=== PATIENT | female | born 2000 | race Caucasian/White ===

== ENCOUNTER 2022-11-24 15:52 | Emergency (ER) | payer OTHER, SELFPAY ==
[2022-11-24 16:05] VITALS: BP 132/76; PULSE 108; RESP 20; TEMP 36.8; O2SAT 96; BMI 29.2
--- NOTE | 2022-11-24 16:12 | ED.FEMALEGU ---
HPI - Female Genitourinary General Chief complaint: Vaginal Bleeding Stated complaint: vaginal bleeding edc 2 Time Seen by Provider: 11/24/22 17:31 Source: patient Mode of arrival: ambulatory Limitations: no limitations History of Present Illness HPI Narrative: 22 yo female currently 9 weeks here with vaginal spotting 6 days ago (started as yellow/brown with mucous, yesterday blood is dark brown with odor). No abdominal or pelvic pain. Spoke to certification engineer antichecking iron worker today who recommended patient go to UC or ER for an evaluation. Went to UC and she was referred here d/t need for US. G 1 P0 YASSINE 06/24/23. 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 Has upcoming appt for one. Has a known cervical polyp, tested for STDS at last OB visit whcih were all negative Not sexually active Related Data Allergies Allergy/AdvReac Type Severity Reaction Status Date / Time No Known Allergies Allergy Verified 11/24/22 16:15 Review of Systems Review of Systems: Yes all other systems are reviewed and are negative Constitutional: Constitutional: Reports no additional constitutional complaints, Denies body ache(s), Denies chills, Denies fever(s), Denies headache(s) and Denies weakness Eyes: Eyes: Reports no additional eye complaints and Denies change in vision ENT: Reports system reviewed and no additional complaints, except as documented, Denies dizziness, Denies headache(s), Denies nasal congestion, Denies nasal discharge and Denies neck pain Cardiovascular: Cardiovascular: Reports no additional cardiovascular complaints, Denies chest pain, Denies leg edema and Denies dyspnea Respiratory: Respiratory: Reports no additional respiratory complaints, Denies cough and Denies dyspnea Gastrointestinal: Gastrointestinal: Reports no additional gastrointestinal complaints, Denies abdominal pain, Denies diarrhea, Denies nausea and Denies vomiting Genitourinary: Genitourinary: Reports no additional female genitourinary complaints, Denies urinary incontinence and Reports vaginal discharge Musculoskeletal: Musculoskeletal: Reports no additional musculoskeletal complaints, Denies back pain, Denies arthralgias, Denies joint swelling, Denies neck pain, Denies numbness and Denies tingling Integumentary/Breasts: Skin/Breast: Reports system reviewed and no additional complaints, except as docu and Denies rash Neurologic: Reports system reviewed and no additional complaints, except as documented, Denies Abnormal speech present, Denies dizziness, Denies headache(s), Denies numbness, Denies tingling and Denies weakness PMFSH Past Medical History Attestation statement: The following information was validated with the patient. Source: old records reviewed and nursing notes reviewed Social History Social History Advance Directives: No Advance Directives Information Provided: No Physical Exam Vital Signs: Vital Signs: Last Vital Signs Temp 98.2 F 11/24/22 16:05 Pulse 108 H 11/24/22 16:05 Resp 20 11/24/22 16:05 BP 132/76 11/24/22 16:05 Pulse Ox 96 11/24/22 16:05 BMI result Body Mass Index 29.2 Const: General: cooperative, healthy appearing, comfortable and no acute distress Orientation/consciousness: patient oriented x3 Limitations: no limitations HEENT: Head: Yes normal to inspection Ears: hearing grossly normal bilaterally General nose exam: Normal external nose present Face and sinus: Yes normal facial exam Mouth: Normal oral and palatal mucosa present Throat: Yes posterior oropharynx normal Eyes: General: appearance normal, both eyes and all related structures Pupils: Equal, round and reactive pupils present Neck: Neck: Yes normal visual inspection Chest: Chest palpation & inspection: normal inspection of the chest Resp: Effort & Inspection: normal respiratory effort Auscultation: clear to auscultation bilaterally Cardio: Rate: regular rate Rhythm: regular rhythm Peripheral pulses: Peripheral pulses 2+ throughout GI: Inspection: Yes normal to inspection Palpation (GI): Soft to palpation and nontender Auscultation: normal bowel sounds : Other: Pelvic done with Janis NULL student around the labia minora/majora there is scant yelow thick discharge When the speculum was introduced the cervix is friable with a polyp seen, there is some bleeding noted around the cervix and not from the OS External Female Exam: normal external appearance Bimanual exam- vagina & uterus: normal bimanual exam Bimanual Exam- Adnexa, other: normal adnexae Back/Spine/Pelvis: Thoracic/Lumbar Spine: thoracic and lumbar spine normal to inspection Skin: General skin exam: no rashes or lesions noted Neuro: General: patient oriented x3, no focal motor deficits and normal sensation to monofilament Cranial nerves: Yes Equal, round and reactive pupils present Cognition (Neuro): normal cognition Speech: No Abnormal speech present Gait exam (Neuro): Normal gait present Motor exam (neuro): 5/5 motor strength present throughout Extrem: General: Yes normal to inspection Course Course Course Narrative: RME: 22yo F w/no sig PMHx w/+home test in October c/o brown/red vaginal discharge x6 days. LMP 09/17. Also reports concerns for yeast infection. +nausea. denies abdominal pain. Does have OBGYN/receiving care, 1st ultrasound scheduled for next week Labs, UA, Pelvic US ordered Full HPI, ROS and PE to be performed by primary ED provider. Reevaluation(s) Reevaluation #1: Pelvic US confirms IUP, quant >100k so less likely ectopic or SAB. May be threatened MS. Recommend close f/u with OB. Sent testing for CT NG, BV panel. Will wait for results d/t . Patient has low concern for STI. Reviewed worrisome signs/symptom with patient and when to seek additional care. Comfortable with discharge home. Medical Decision Making Medical Decision Making [facility] Narrative: 22 yo female currently 9 weeks here with complaints of malodorous vaginal discharge which was initially yellow but now is dark brown in appearance with no reports of pelvic pain/abdominal pain. Has been seen by OB at [facility]. Tested negative for STI in last month, waiting for upcoming US to confirm IUP. On exam no focal abdominal pain. Will need labs, UA, US and pelvic exam Differential Diagnosis Differential Diagnoses: The differential diagnosis associated with the presentation includes ectopic , SAB, threatened MS STI Low concern for PID with no reports of pelvic/abdominal pain vaginitis Lab Data [facility] Lab Attestation statement: I reviewed the patient's lab results. 11/24/22 16:57 11/24/22 16:57 Labs: Lab Results 11/24/22 11/24/22 11/24/22 Range/Units 16:57 16:57 16:57 WBC 8.0 (4.8-10.8) X10*3/uL RBC 4.34 (4.20-5.50) X10*6/uL Hgb 13.0 (12.0-16.0) g/dl Hct 37.9 (37.0-47.0) % MCV 87.3 (80.0-98.0) fL MCH 30.0 (27.0-33.0) pg MCHC 34.3 (31.0-35.0) g/dl RDW 12.3 (11.0-16.0) % Plt Count 282 (160-400) X10*3/uL MPV 9.5 (9.4-12.3) fL Immature Gran % (Auto) 0.4 (0.0-0.4) % Neut % (Auto) 60.0 (45-73) % Lymph % (Auto) 30.2 (20-40) % [place] % (Auto) 8.7 (2-11) % Eos % (Auto) 0.4 (0-4) % Baso % (Auto) 0.3 (0-2) % Lymph # (Auto) 2.4 (1.2-4.9) X10*3/uL [place] # (Auto) 0.7 (0.1-1.2) X10*3/uL Eos # (Auto) 0.0 (0.0-0.4) X10*3/uL Baso # (Auto) 0.0 (0.0-0.2) X10*3/uL Abs Immat Gran (auto) 0.03 (0.00-0.03) X10*3/uL Absolute Neuts (auto) 4.8 (2.0-8.3) x10*3/uL Absolute Nucleated RBC 0.000 (0.0-0.012) X10*3/uL Nucleated RBC % (auto) 0.0 (0.0-0.2) /100WBC Sodium 137 (135-145) mmol/L Potassium 3.9 (3.3-5.1) mmol/L Chloride 107 (96-108) mmol/L Carbon Dioxide 21 L (22-29) mmol/L Anion Gap 13 (12-20) BUN 9 (9-16) mg/dL Creatinine 0.64 (0.5-1.4) mg/dL Estim Creat Clear Calc 138.6 Estimated GFR > 60 Random Glucose 87 (60-115) mg/dL Calcium 9.5 (8.4-10.2) mg/dL Magnesium 1.9 (1.6-2.6) mg/dL Total Bilirubin 0.4 (0.0-1.0) mg/dL Direct Bilirubin 0.1 (0.0-0.5) mg/dL AST 20 (5-31) U/L ALT 18 (0-31) U/L Alkaline Phosphatase 68 (39-117) U/L Total Protein 7.0 (6.5-8.0) g/dL Albumin 3.9 (3.5-5.0) g/dL Lipase 20 (8-78) U/L Beta HCG, Quant 268385 mIU/mL Blood Type 11/24/22 Range/Units 16:57 WBC (4.8-10.8) X10*3/uL RBC (4.20-5.50) X10*6/uL Hgb (12.0-16.0) g/dl Hct (37.0-47.0) % MCV (80.0-98.0) fL MCH (27.0-33.0) pg MCHC (31.0-35.0) g/dl RDW (11.0-16.0) % Plt Count (160-400) X10*3/uL MPV (9.4-12.3) fL Immature Gran % (Auto) (0.0-0.4) % Neut % (Auto) (45-73) % Lymph % (Auto) (20-40) % [place] % (Auto) (2-11) % Eos % (Auto) (0-4) % Baso % (Auto) (0-2) % Lymph # (Auto) (1.2-4.9) X10*3/uL [place] # (Auto) (0.1-1.2) X10*3/uL Eos # (Auto) (0.0-0.4) X10*3/uL Baso # (Auto) (0.0-0.2) X10*3/uL Abs Immat Gran (auto) (0.00-0.03) X10*3/uL Absolute Neuts (auto) (2.0-8.3) x10*3/uL Absolute Nucleated RBC (0.0-0.012) X10*3/uL Nucleated RBC % (auto) (0.0-0.2) /100WBC Sodium (135-145) mmol/L Potassium (3.3-5.1) mmol/L Chloride (96-108) mmol/L Carbon Dioxide (22-29) mmol/L Anion Gap (12-20) BUN (9-16) mg/dL Creatinine (0.5-1.4) mg/dL Estim Creat Clear Calc Estimated GFR Random Glucose (60-115) mg/dL Calcium (8.4-10.2) mg/dL Magnesium (1.6-2.6) mg/dL Total Bilirubin (0.0-1.0) mg/dL Direct Bilirubin (0.0-0.5) mg/dL AST (5-31) U/L ALT (0-31) U/L Alkaline Phosphatase (39-117) U/L Total Protein (6.5-8.0) g/dL Albumin (3.5-5.0) g/dL Lipase (8-78) U/L Beta HCG, Quant mIU/mL Blood Type O Positive Independent Interpretation I performed an independent interpretation of an: Ultrasound Interpretation: I independently reviewed the US and agree with rad report Radiology Impression Discussion of test interpretation with radiology: I have reviewed the radiologist's reading. Radiologist Impression: [place] [id number] Ultrasound Report Signed Patient: Jesus Manuel Winters MR#: [id number] : 2000 Acct:[id number] Age/Sex: 22 / F ADM Date: 11/24/22 Loc: .ED Attending Dr: Ordering Physician: Sarah Joseph Date of Service: 11/24/22 Procedure(s): US OB <= 14 weeks fetus Accession Number(s): [id number] cc: Sarah Joseph~ EXAMINATION:? US OBSTETRICAL ULTRASOUND CLINICAL INFORMATION:? Bleeding COMPARISON:? None available.? LMP: 09/17/2022. Gestational age by maternal dates is 9 weeks and 5 days. Estimated date of delivery by maternal dates is 06/24/2023. TECHNIQUE: Ultrasound of the maternal pelvis is performed using transabdominal transducer. M-mode Doppler is also performed. ? FINDINGS: There is a single intrauterine gestational sac with visible yolk sac, embryo/fetus, and cardiac activity.? There is no significant subchorionic hemorrhage or hematoma. HR:? 170 beats per minute. CRL (crown rump length): ? 2.9 cm (9 weeks and 5 days +/- 4 days). YASSINE (estimated date of delivery):? 06/24/2023 +/- 4 days. ? MATERNAL ADNEXA: ? ? The right maternal ovary measures 2.3 x 1.3 x 1.6 cm.? Right ovary is unremarkable in appearance. The left maternal ovary measures 3.6 x 3.3 x 2.4 cm.? Left ovary is remarkable for a physiologic hemorrhagic corpus luteum. No adnexal mass. There is no significant maternal adnexal mass.? No maternal pelvic ascites. US/US OB <= 14 weeks fetus IMPRESSION: 1. Single intrauterine gestation with ultrasound gestational age of? 9 weeks and 5 days +/- 4 days. 2. Estimated date of delivery is 06/24/2023 +/- 4 days. 3. No maternal adnexal mass or pelvic ascites. Discharge Plan Discharge Clinical Impression: Threatened Patient Disposition: Home, Self-Care Instructions: Threatened Miscarriage (ED) Additional Instructions: We will call you of your results are positive. Follow-up with your OB Return for increased bleeding, abdominal or pelvic pain, fever Pelvic rest Referrals: PhysicianMariela [Primary Care Provider] -
[2022-11-24 19:07] VITALS: BP 99/67; PULSE 90; RESP 17; O2SAT 96
== END 2022-11-24 19:08 | disposition home or self-care (01) ==
PROVIDERS: Emergency Provider Internal Medicine
DX: O20.0 Threatened abortion (principal); O34.81 Maternal care for other abnormalities of pelvic organs, first trimester; N83.12 Corpus luteum cyst of left ovary; N89.8 Other specified noninflammatory disorders of vagina; Z3A.09 9 weeks gestation of pregnancy
CPT/HCPCS: 0353U; 36415; 76801; 80048; 80076; 83690; 83735; 84702; 85025; 86900; 86901; 87480; 87510; 87660; 99284

== ENCOUNTER 2023-04-09 13:13 | Emergency (ER) | payer OTHER, SELFPAY ==
--- NOTE | ~2023-04-09 | NM_ITS ---
EXAMINATION: [place] LUNG IMAGE PERFUSION CLINICAL INFORMATION: 29 weeks for PE. Shortness of breath. Tachycardia. Increased d-dimer COMPARISON: Chest x-ray this evening TECHNIQUE: Multiple oblique gamma camera images of the chest were obtained after the intravenous ingestion of a 1.5 mCi of technetium 99m MDP FINDINGS: There is homogeneous distribution of activity with no evidence for segmental or subsegmental defects within the diffuse lung parenchyma. No focal airspace disease was seen on the chest x-ray from earlier today. WV/WV pul perfusion IMPRESSION: Although this is a perfusion only study, there is homogeneous distribution of activity with no segmental or subsegmental defects seen. PIOPED normal.
--- NOTE | ~2023-04-09 | XR_ITS ---
EXAMINATION: XR CHEST CLINICAL INFORMATION: Shortness of breath. COMPARISON: None available. TECHNIQUE: Frontal view of the chest was obtained. FINDINGS: No significant abnormality is noted involving the heart, lungs, mediastinum, bony thorax or soft tissues. XR/XR chest 1V IMPRESSION: Unremarkable examination.
[2023-04-09 13:50] VITALS: BP 137/67; PULSE 126; RESP 18; TEMP 36.6; O2SAT 100; BMI 38.4
--- NOTE | 2023-04-09 13:54 | ED_ITS ---
HPI - General Adult General Chief complaint: Upper Respiratory Symptoms Stated complaint: Bloodclot in lung? Time Seen by Provider: 04/09/23 18:33 Source: patient Mode of arrival: ambulatory Limitations: no limitations History of Present Illness HPI narrative: Patient is 29 weeks primary comes from doctor's office for shortness of breath for last 3 weeks with intermittent saturating 100% at room air add venous Doppler done which was negative for DVT in the legs had a D-dimer done which was 537 patient was sent here to rule out PE. Patient does have anxiety tachycardic on arrival with heart rate of 126 beats per minute denies any chest pain had multiple episode of shortness of breath in between with palpitation no history of DVT/PE in the family Related Data Previous Rx's Medication Instructions Recorded cefuroxime axetil 250 mg tablet 250 mg PO BID 7 days #14 tabs 04/09/23 Allergies Allergy/AdvReac Type Severity Reaction Status Date / Time No Known Allergies Allergy Verified 04/09/23 13:50 Review of Systems 2 Review of Systems: Yes all other systems are reviewed and are negative PMFSH Social History Alcohol intake: never Advance Directives: No Advance Directives Information Provided: No Physical Exam ED Vital Signs: Vital Signs - 24 hr 04/09/23 13:50 04/09/23 18:59 Temperature 98 F 98.5 F Pulse Rate 126 H 136 H Respiratory Rate 18 18 Blood Pressure 137/67 127/71 Pulse Oximetry 100 100 Oxygen Delivery Method Room Air BiPAP BMI result Body Mass Index 38.4 Appearance: Alert. Oriented X3. No acute distress. Anxious Eyes: PERRLA, No Nystagmus ENT: Pharynx normal. Oral Mucosa moist Neck: Normal inspection. Neck supple. CVS: Sinus tachycardia no murmur rub or gallop P2 is normal Pulses normal. Respiratory: No respiratory distress. Equal air entry bilateral, no wheezing/rales/rhonchi Abdomen: Soft and nontender. Bowel sounds are present, no mass palpable, no CVA tenderness Skin: Skin warm and dry. Normal skin color. Normal skin turgor. Extremities: No lower extremity edema. No calf tenderness Neuro: Oriented X 3. No motor deficit. Course Course Course Narrative: This is an RME: Additional HPI, ROS, PE not included below will be deferred to primary provider. This is 23 -[id number], 29 weeks , presenting to the ER with a complaint of shortness of breath, and palpitations. Patient was seen by her OBGYN who ordered a D-dimer test and ultrasound, bilateral lower extremity ultrasounds were negative however D-dimer was found to be elevated. Patient denies any chest pain. Patient is tachycardic at 126bpm, but patient states that she has a history of healthcare anxiety. Plan: Labs, EKG Medications Administered Discontinued Medications Generic Name Dose Route Start Last Admin Trade Name Freq PRN Reason Stop Dose Admin Cefuroxime Axetil 250 mg 04/09/23 18:56 04/09/23 19:13 Cefuroxime Axetil 250 Mg Tablet PO 04/09/23 18:57 250 mg ONCE ONE Administration Sodium Chloride 1,000 mls @ 999 mls/hr 04/09/23 19:13 04/09/23 19:23 Ns IV 04/09/23 20:13 999 mls/hr .Q1H1M ONE Administration Medical Decision Making Medical Decision Making [facility] Narrative: Patient tachycardia with anxiety with intermittent episodes of shortness of breath 29 weeks venous Doppler of the lower extremities negative for DVT but D-dimer was positive done at the PCP office which could be falsely positive because of . Patient does not have any progressive increase in shortness of breath although she is at high risk of PE case discussed Dr. Tramaine Jolley advised chest x-ray 1st and V/Q scan if chest x-ray normal to rule out PE Patient V/Q scan is low probability for PE patient feeling much better at this time will discharge patient home patient does have UTI Differential Diagnosis Differential Diagnoses: The differential diagnosis associated with the presentation includes Acute PE/anxiety/bronchitis/UTI Lab Data 04/09/23 14:27 04/09/23 14:27 Labs: Lab Results 04/09/23 04/09/23 04/09/23 Range/Units 14:27 14:31 19:43 WBC 11.1 H (4.8-10.8) X10*3/uL RBC 3.53 L (4.20-5.50) X10*6/uL Hgb 10.3 L D (12.0-16.0) g/dl Hct 31.1 L (37.0-47.0) % MCV 88.1 (80.0-98.0) fL MCH 29.2 (27.0-33.0) pg MCHC 33.1 (31.0-35.0) g/dl RDW 13.1 (11.0-16.0) % Plt Count 270 (160-400) X10*3/uL MPV 9.5 (9.4-12.3) fL Immature Gran % (Auto) 2.0 H (0.0-0.4) % Neut % (Auto) 72.5 (45-73) % Lymph % (Auto) 19.0 L (20-40) % [place] % (Auto) 5.8 (2-11) % Eos % (Auto) 0.4 (0-4) % Baso % (Auto) 0.3 (0-2) % Lymph # (Auto) 2.1 (1.2-4.9) X10*3/uL [place] # (Auto) 0.6 (0.1-1.2) X10*3/uL Eos # (Auto) 0.1 (0.0-0.4) X10*3/uL Baso # (Auto) 0.0 (0.0-0.2) X10*3/uL Abs Immat Gran (auto) 0.22 H (0.00-0.03) X10*3/uL Absolute Neuts (auto) 8.1 (2.0-8.3) x10*3/uL Absolute Nucleated RBC 0.000 (0.0-0.012) X10*3/uL Nucleated RBC % (auto) 0.0 (0.0-0.2) /100WBC PT 10.7 L (11.1-13.3) SEC INR 0.9 (0.9-1.1) D-Dimer High Sensitivty 550 NG/ML Sodium 137 (135-145) mmol/L Potassium 3.6 (3.3-5.1) mmol/L Chloride 107 (96-108) mmol/L Carbon Dioxide 25 (22-29) mmol/L Anion Gap 9 L (12-20) BUN 5 L (9-16) mg/dL Creatinine 0.54 (0.5-1.4) mg/dL Estim Creat Clear Calc 174.3 Estimated GFR > 60 Random Glucose 105 (60-115) mg/dL Calcium 8.7 D (8.4-10.2) mg/dL Magnesium 1.7 (1.6-2.6) mg/dL Total Bilirubin 0.2 (0.0-1.0) mg/dL Direct Bilirubin < 0.2 (0.0-0.5) mg/dL AST 12 (5-31) U/L ALT 14 (0-31) U/L Alkaline Phosphatase 112 (39-117) U/L Troponin I High Sens < 2.7 (<3.5-17.0) ng/L Total Protein 6.2 L (6.5-8.0) g/dL Albumin 3.1 L (3.5-5.0) g/dL Urine Color Yellow Urine Appearance Cloudy Urine pH 7.5 (5.0-9.0) Ur Specific [place] 1.010 (1.005-1.025) Urine Protein Negative (Neg-Trace) mg/dL Urine Glucose (UA) Negative (Negative) mg/dL Urine Ketones Negative (Negative) mg/dL Urine Blood Negative (Negative) Urine Nitrite Negative (Negative) Ur Leukocyte Esterase Moderate (2+) H (Negative) Urine RBC 0-2 (0-2) /HPF Urine WBC 21-50 H (0-5) /HPF Ur Squamous Epith Cells 6-10 (0-2) /HPF Urine Bacteria 2+ (None Seen) Hyaline Casts 0-2 (0-2) /LPF Discharge Plan Discharge Clinical Impression: Third trimester , Shortness of breath, UTI (urinary tract infection) Patient Disposition: Home, Self-Care Instructions: Urinary Tract Infection in (ED), at 27 to 30 Weeks (ED), Shortness of Breath (ED) Additional Instructions: Your nuclear study negative for blood clot in the lung Shortness of breath is likely from Drink plenty of fluids, take antibiotic for UTI Follow with PCP if any concerns Prescriptions: New cefuroxime axetil 250 mg tablet 250 mg PO BID 7 Days Qty: 14 0RF Interventions: ED Discharge Assessment Last Done: 04/10/23 06:48 Discharge Date/Time: 04/10/23 06:48
--- NOTE | 2023-04-09 13:59 | ECG_ITS ---
Test Reason : PALPITATIONS Blood Pressure : / mmHG Vent. Rate : 129 BPM Atrial Rate : 129 BPM P-R Int : 120 ms QRS Dur : 074 ms QT Int : 308 ms P-R-T Axes : 042 039 021 degrees QTc Int : 451 ms Sinus tachycardia Otherwise normal ECG No previous ECGs available Referred By: Doretha Bazan Electronically Signed By:JEAN POTTER MD
[2023-04-09 14:41] LABS: MANUAL DIFF FLAG NO
[2023-04-09 14:43] LABS: Basophils Percent Auto 0.3 % (0-2); Eosinophils Absolute Auto 0.1 X10*3/uL (0.0-0.4); Eosinophils Percent Auto 0.4 % (0-4); Hematocrit 31.1 % (37.0-47.0); Hemoglobin 10.3 g/dl (12.0-16.0); Imm Gran Abs Auto 0.22 X10*3/uL (0.00-0.03); Lymphocytes Absolute Auto 2.1 X10*3/uL (1.2-4.9); Mean Corpuscular HGB Conc 33.1 g/dl (31.0-35.0); Mean Corpuscular Hemoglobin 29.2 pg (27.0-33.0); Mean Corpuscular Volume 88.1 fL (80.0-98.0); Mean Platelet Volume 9.5 fL (9.4-12.3); Monocytes Absolute Auto 0.6 X10*3/uL (0.1-1.2); Monocytes Percent Auto 5.8 % (2-11); Neutrophils Absolute Auto 8.1 x10*3/uL (2.0-8.3); Neutrophils Percent Auto 72.5 % (45-73); Platelet Count 270 X10*3/uL (160-400); Red Blood Count 3.53 X10*6/uL (4.20-5.50); Red Cell Distribution Width 13.1 % (11.0-16.0); White Blood Count 11.1 X10*3/uL (4.8-10.8)
[2023-04-09 14:47] LABS: Appearance Urine Cloudy; Color Urine Yellow; Glucose Urine UA Negative (Negative); Leukocyte Esterase Urine Moderate (2+) (Negative); Nitrite Urine Negative (Negative); PH 7.5 (5.0-9.0); UMIC TRIGGER UACC YES; Urine Blood Negative (Negative); Urine Ketones Negative (Negative); Urine Protein Negative (Neg-Trace)
[2023-04-09 14:49] LABS: Bacteria Urine 2+ (None Seen); Hyaline Casts Urine 0-2 /LPF (0-2); RBC Urine 0-2 /HPF (0-2); UACC Culture Trigger YES; WBC Urine 21-50 /HPF (0-5)
[2023-04-09 15:10] LABS: Alanine Aminotransferase 14 U/L (0-31); Albumin Level 3.1 g/dL (3.5-5.0); Alkaline Phosphatase 112 U/L (39-117); Anion Gap 9 (12-20); Aspartate Amino Transferase 12 U/L (5-31); Bilirubin Direct < 0.2 mg/dL (0.0-0.5); Bilirubin Total 0.2 mg/dL (0.0-1.0); Blood Urea Nitrogen 5 mg/dL (9-16); Calcium 8.7 mg/dL (8.4-10.2); Carbon Dioxide 25 mmol/L (22-29); Chloride 107 mmol/L (96-108); Creatinine Clr Calc Pharmacy 174.3; Estimated Glomerular Filt Rate > 60; Glucose Random 105 mg/dL (60-115); Magnesium 1.7 mg/dL (1.6-2.6); Potassium 3.6 mmol/L (3.3-5.1); Sodium 137 mmol/L (135-145); Total Protein 6.2 g/dL (6.5-8.0)
[2023-04-09 15:11] LABS: Troponin-I High Sensitivity < 2.7 ng/L (<3.5-17.0)
[2023-04-09 18:59] VITALS: BP 127/71; PULSE 136; RESP 18; TEMP 36.9; O2SAT 100
[2023-04-09] MEDS: cefuroxime axetiL 250 MG TABLET PO (19:13)
[2023-04-09] MEDS: 0.9 % Sodium Chloride 1,000 ML 999 ML IV (19:23)
--- NOTE | 2023-04-09 19:23 | PM.OBCN ---
OB Consult Note - [facility] Data Service Date: 04/09/23 Primary Care Provider: Saadia Irving MD Narrative I was consulted at 18:[address] Lemus regarding Jesus Manuel Winters who is a 23 year old at 29 weeks of gestation presenting with shortness of breath for last 3 weeks duration with intermittent saturating 100% at room air the patient saw her primary care physician ordered a venous Doppler bilateral lower extremity which was negative for DVT in addition she had a D-dimer done which was 537 , so the patient was sent here to rule out PE. Patient does have anxiety tachycardic on arrival with heart rate of 126 beats per minute denies any chest pain had multiple episode of shortness of breath in between with palpitation. No abdominal cramps, leakage of fluid or bleeding. Good movements OB [facility] Social History Alcohol intake: never Advance Directives: No Advance Directives Information Provided: No Meds Allergies Allergy/AdvReac Type Severity Reaction Status Date / Time No Known Allergies Allergy Verified 04/09/23 13:50 Active Medications: Current Medications Sodium Chloride (Ns) 1,000 mls @ 999 mls/hr IV .Q1H1M ONE Stop: 04/09/23 20:13 OB Physical Exam Physical Exam Additional Comments: Physical exam reported as following: CVS: Sinus tachycardia no murmur rub or gallop P2 is normal Pulses normal. Respiratory: No respiratory distress. Equal air entry bilateral, no wheezing/rales/rhonchi Abdomen: Soft and nontender. Bowel sounds are present, no mass palpable, no CVA tenderness OB Consult Results Labs 04/09/23 14:27 04/09/23 14:27 Labs: Short CBC 04/09/23 Range/Units 14:27 WBC 11.1 H (4.8-10.8) X10*3/uL Hgb 10.3 L D (12.0-16.0) g/dl Hct 31.1 L (37.0-47.0) % Plt Count 270 (160-400) X10*3/uL BMP 04/09/23 14:27 Sodium 137 Potassium 3.6 Chloride 107 Carbon Dioxide 25 BUN 5 L Creatinine 0.54 Calcium 8.7 D Liver Function 04/09/23 Range/Units 14:27 Total Bilirubin 0.2 (0.0-1.0) mg/dL Direct Bilirubin < 0.2 (0.0-0.5) mg/dL AST 12 (5-31) U/L ALT 14 (0-31) U/L Alkaline Phosphatase 112 (39-117) U/L Albumin 3.1 L (3.5-5.0) g/dL Urine / Range/Units 14:31 Urine Color Yellow Urine Appearance Cloudy Urine pH 7.5 (5.0-9.0) Ur Specific [place] 1.010 (1.005-1.025) Urine Protein Negative (Neg-Trace) mg/dL Urine Glucose (UA) Negative (Negative) mg/dL OB - CN: A/P Assessment and Plan (1) Shortness of breath: Status: Acute Plan Recommended to Dr. Mendez the [place] [employer] algorithm for suspected PE in : Chest x-ray with abdominal shield , if normal, next step is V/Q scan ; If indeterminate , proceed to CTA ; if chest x-ray is abnormal proceed to CTA instead. Check heart rate if the patient is having decreased movement or any abdominal symptoms suggestive of contractions or pelvic pressure , the [place] need [place] out [place] and evaluate well-being since [facility] does not have a maternity unit Discussed with the patient on the phone the risk of maternal mortality in undiagnosed PE being between 20-30%, in addition discussed with the patient VQ scan with a its sensitivity, specificity, positive and negative predictive value in the diagnosis of PE. Explained to the patient that contrast agents, when administered intravenously, cross the placenta to enter the amniotic fluid and the circulation. The major concern regarding the administration of iodinated contrast is the effect on thyroid function. Limited data suggest that the risk of hypothyroidism, due to exposure to free iodine, is very low. However, No animal studies have shown teratogenicity for iodinated contrast. No teratogenicity of gadolinium has been observed in human studies. However, teratogenicity for high doses or prolonged exposures to gadolinium has been observed in animals.The risk of stillbirths and deaths with exposure to gadolinium during is conflicting. At and all questions were answered patient verbalized understanding and agreed with the plan I spent a total of 20 minute reviewing the chart, communicating to the emergency room provider and documenting in the medical record Time Spent With Patient Time: Total time managing care of this patient today ____ minutes.
--- NOTE | 2023-04-09 19:53 | PC.NURSE ---
Pt ca&ox4, no signs of distress. Pts SO at bedside. IV placed, 20g in left a/c. Labs pulled. US with pt. Pt requested and given blanket. Plan of care ongoing.
[2023-04-09 19:55] LABS: INTERNATIONAL NORM RATIO 0.9 (0.9-1.1); Prothrombin Time 10.7 SEC (11.1-13.3)
[2023-04-09 19:57] LABS: D Dimer High Sensitivity 550 NG/ML
[2023-04-09 20:54] VITALS: BP 103/66; PULSE 118; RESP 16; TEMP 36.9; O2SAT 98
== END 2023-04-10 06:48 | disposition home or self-care (01) ==
PROVIDERS: Physician Assistant Medical; Emergency Provider Internal Medicine; PCP Family Medicine
DX: O23.43 Unspecified infection of urinary tract in pregnancy, third trimester (principal); N39.0 Urinary tract infection, site not specified; R06.02 Shortness of breath; R00.0 Tachycardia, unspecified; R00.2 Palpitations; Z3A.29 29 weeks gestation of pregnancy
CPT/HCPCS: 36415; 71045; 78580; 80048; 80076; 81001; 83735; 84484; 85025; 85379; 85610; 87086; 93005; 96360; 99284; A9540

== ENCOUNTER → 2023-04-09 19:04 | Outpatient (BNV) | payer OTHER, SELFPAY | PROVIDERS: Emergency Provider Internal Medicine; PCP Family Medicine; Visit Provider Obstetrics & Gynecology | DX: R06.02 Shortness of breath (principal) | CPT/HCPCS: 99283 ==